=== PATIENT | male | born 1980 | race Caucasian/White ===

== ENCOUNTER 2022-12-22 22:00 | Emergency (ER) | payer BC ==
[2022-12-22] MEDS ORDERED: Fentanyl 100 MCG/2 ML VIAL ONE (22:24)
[2022-12-22] MEDS ORDERED: Lidocaine 1% PF 5 ML VIAL ONE (22:24)
[2022-12-22] MEDS ORDERED: Dexamethasone 4 mg/ml Vial ONE (22:24)
[2022-12-22] MEDS ORDERED: PROPOFOL 20 ML ONE ×2 (22:24→23:04)
[2022-12-22] MEDS ORDERED: Ondansetron PF 4 MG/2 ML Vial ONE (22:24)
[2022-12-22] MEDS ORDERED: Succinylcholine 200 MG/10 ml SYRINGE FS ONE (22:25)
[2022-12-22] MEDS ORDERED: Midazolam HCl 2 mg/2 ml Vial ONE (22:56)
== END 2022-12-22 22:58 | disposition admitted as inpatient to this hospital (09) ==
LOC: CSHERS 22:00
DX: T18.128A Food in esophagus causing other injury, initial encounter (principal); K21.9 Gastro-esophageal reflux disease without esophagitis; Z79.899 Other long term (current) drug therapy
CPT/HCPCS: 99284; J1100; J2250; J2405; J2704; J3010